=== PATIENT | female | born 1995 | race African-American/Black ===

== ENCOUNTER 2021-08-08 15:07 | Emergency (ER) | payer MEDICAID, OTHER ==
[~2021-08-08] VITALS: Ht 154.9 cm; Wt 104.3 kg
[2021-08-08] MEDS ORDERED: FLUT16H NASAL (17:07)
[2021-08-08] MEDS ORDERED: ACET-66 PO (17:07)
[2021-08-08] MEDS ORDERED: NIRM1TAB PO (17:07)
[2021-08-08 17:16] VITALS: BP 133/71
== END 2021-08-08 17:21 | disposition home or self-care (01) ==
LOC: EDH 15:07
DX: U07.1 COVID-19 (principal); Z20.822 Contact with and (suspected) exposure to COVID-19
CPT/HCPCS: 87635; 87804 ×2; 99283; C9803